=== PATIENT | male | born 1940 | race Caucasian/White ===

== ENCOUNTER → 2016-09-16 | Outpatient (CLI) | payer OTHER, BC ==
[2016-09-16 13:53] LABS: BASO % 0.3 %; BASO ABS # 0.02 K/uL (0-0.2); COMPLETE YES; EOS % 3.4 %; HEMATOCRIT 42.5 % (42-52); IG% 0.1 %; LYMPH % 28.4 %; LYMPH ABS # 2.01 K/uL (1.2-3.4); MEAN CELL VOLUME 88.9 fL (80-100); MEAN CORPUSCULAR HEMOGLOBIN 29.3 pg (25-34); MEAN CORPUSCULAR HGB CONC 32.9 g/dl (32-36); MEAN PLATELET VOLUME 9.9 fL (7.4-10.4); NEUT % 55.8 %; PLATELET COUNT 184 K/uL (130-400); RED BLOOD COUNT 4.78 M/uL (4.7-6.1); WHITE BLOOD COUNT 7.08 K/uL (4.8-10.8)
[2016-09-16 14:08] LABS: ALT/SGPT 32 U/L (12-78); AST/SGOT 26 U/L (15-37); BLOOD UREA NITROGEN 16 mg/dl (7-18); BUN/CREATININE RATIO 14.8 (10-20); CALCIUM 8.7 mg/dl (8.5-10.1); CARBON DIOXIDE 33 mmol/L (21-32); CHLORIDE 108 mmol/L (98-107); CHOLESTEROL 136 mg/dl (0-200); GLUCOSE 80 mg/dl (70-99); POTASSIUM 3.6 mmol/L (3.5-5.1); SODIUM 146 mmol/L (136-145)
[2016-09-16 14:14] LABS: URINE APPEARANCE CLEAR (CLEAR); URINE BILIRUBIN NEG (NEG); URINE COLOR DK YELLOW; URINE NITRITE NEG (NEG); UROBILINOGEN NEG (NEG)
[2016-09-16 14:18] LABS: ALB/GLOB RATIO 0.9 (0.9-2); ALKALINE PHOSPHATASE 90 U/L (45-117); CHOLESTEROL/HDL RATIO 2.4; HDL CHOLESTEROL 56 mg/dl; LDL CHOLESTEROL CALCULATED 56 mg/dl; PROSTATE SPECIFIC ANTIGEN < 0.010 ng/ml (0.000-4.000); TRIGLYCERIDES 119 mg/dl (0-150); VERY LOW DENSITY LIPOPROT CALC 24 mg/dl
[2016-09-16 14:19] LABS: MANUAL MICROSCOPIC REQUIRED? NO; REVIEW REQ? NO
== END | disposition home or self-care (01) ==
LOC: C.LABMFLN 08:01
PROVIDERS: ATTEND Family Medicine
DX: E78.5 Hyperlipidemia, unspecified (principal); C61 Malignant neoplasm of prostate; K21.9 Gastro-esophageal reflux disease without esophagitis; I10 Essential (primary) hypertension

== ENCOUNTER → 2016-11-04 | Outpatient (CLI) | payer OTHER, BC ==
[2016-11-04 14:05] LABS: BLOOD UREA NITROGEN 19 mg/dl (7-18); BUN/CREATININE RATIO 17.1 (10-20); CALCIUM 9.2 mg/dl (8.5-10.1); CARBON DIOXIDE 30 mmol/L (21-32); CHLORIDE 107 mmol/L (98-107); GLUCOSE 99 mg/dl (70-99); POTASSIUM 3.5 mmol/L (3.5-5.1); SODIUM 144 mmol/L (136-145)
== END | disposition home or self-care (01) ==
LOC: C.LABMFLN 07:37
PROVIDERS: ATTEND Physician Assistant
DX: Z00.00 Encounter for general adult medical examination without abnormal findings (principal); I10 Essential (primary) hypertension

== ENCOUNTER → 2017-01-09 | Outpatient (CLI) | payer OTHER, BC | END | disposition home or self-care (01) | LOC: C.PATHSPEC 13:48 | PROVIDERS: ATTEND Dermatology | DX: L57.9 Skin changes due to chronic exposure to nonionizing radiation, unspecified (principal) ==

== ENCOUNTER → 2017-03-04 | Outpatient (CLI) | payer OTHER, BC ==
--- NOTE | 2017-03-04 15:59 | DIAGNOSTIC IMAGING REPORT ---
LEFT HAND 3 VIEWS CLINICAL HISTORY: SICCA syndrome. FINDINGS: 3 views of left hand are obtained. No prior studies are available for comparison at the time of dictation. The skeletal structures are osteopenic. No fracture is seen. Mild osteoarthritic change is present at the radiocarpal articulation. There is mild osteoarthrosis at the first carpometacarpal and metacarpophalangeal joints, as well as involving the interphalangeal joints. No erosive change is identified. The overlying soft tissues are within normal limits. IMPRESSION: Osteopenia and arthritic change as above. No acute bony abnormality is seen. Electronically signed by: Glen Abad M.D. 03/04/2017 3:07 PM Dictated Date/Time: 03/04/2017 3:05 PM
--- NOTE | 2017-03-04 15:59 | DIAGNOSTIC IMAGING REPORT ---
TEMPORARY HISTORY: -old Unknown patient presents with sicca syndrome. COMPARISON: Left hand radiographs of same day TECHNIQUE: 3 views of the right hand FINDINGS: Bone mineralization is within normal limits. There is no acute fracture or dislocation. Mild metacarpophalangeal and interphalangeal degenerative changes are noted. No soft tissue calcifications are identified. No definite erosive changes. No acute fracture or dislocation. IMPRESSION: 1. No acute fracture or dislocation. 2. Mild degenerative changes about the metacarpophalangeal and interphalangeal joints. 3. No soft tissue calcifications. The above report was generated using voice recognition software. It may contain grammatical, syntax or spelling errors. Electronically signed by: Mark Anthony Goode M.D. 03/04/2017 3:31 PM Dictated Date/Time: 03/04/2017 3:13 PM
== END | disposition home or self-care (01) ==
LOC: C.RAD1850 14:53
PROVIDERS: ATTEND Internal Medicine Rheumatology
DX: M35.00 Sjogren syndrome, unspecified (principal); M85.842 Other specified disorders of bone density and structure, left hand

== ENCOUNTER → 2017-03-19 | Outpatient (CLI) | payer OTHER, BC ==
[2017-03-19 13:13] LABS: BASO % 0.4 %; BASO ABS # 0.03 K/uL (0-0.2); COMPLETE YES; EOS % 3.8 %; HEMATOCRIT 40.5 % (42-52); IG% 0.3 %; LYMPH % 35.9 %; LYMPH ABS # 2.55 K/uL (1.2-3.4); MEAN CELL VOLUME 89.4 fL (80-100); MEAN CORPUSCULAR HEMOGLOBIN 29.8 pg (25-34); MEAN CORPUSCULAR HGB CONC 33.3 g/dl (32-36); MEAN PLATELET VOLUME 9.8 fL (7.4-10.4); MONO % 10.8 %; NEUT % 48.8 %; PLATELET COUNT 158 K/uL (130-400); RED BLOOD COUNT 4.53 M/uL (4.7-6.1)
[2017-03-19 13:23] LABS: MANUAL MICROSCOPIC REQUIRED? NO; REVIEW REQ? NO; URINE APPEARANCE CLEAR (CLEAR); URINE BILIRUBIN NEG (NEG); URINE COLOR DK YELLOW; URINE EPITHELIAL CELL AUTO 0-5 /lpf (0-5); URINE NITRITE NEG (NEG); URINE SPECIFIC GRAVITY 1.024 (1.000-1.030); UROBILINOGEN NEG (NEG)
[2017-03-19 13:48] LABS: ALT/SGPT 31 U/L (12-78)
[2017-03-19 13:53] LABS: ALKALINE PHOSPHATASE 95 U/L (45-117); AST/SGOT 29 U/L (15-37); PROSTATE SPECIFIC ANTIGEN 0.013 ng/ml (0.000-4.000)
[2017-03-24 10:17] LABS: ANTI-CENTROMERE AB <1.0 NEG AI (<1.0 NEG); ANTI-SS-A >8.0 POS AI (<1.0 NEG); ANTI-SS-B >8.0 POS AI (<1.0 NEG); DNA ds CRITHIDIA NEGATIVE (NEGATIVE); Sm Antibody <1.0 NEG AI (<1.0 NEG)
[2017-03-24 14:04] LABS: ANA TITER > OR = 1:1280 TITER (<1:40)
== END | disposition home or self-care (01) ==
LOC: C.LABMFLN 09:09
PROVIDERS: ATTEND Internal Medicine Rheumatology
DX: R33.9 Retention of urine, unspecified (principal); M35.00 Sjogren syndrome, unspecified

== ENCOUNTER → 2017-04-14 | Outpatient (CLI) | payer OTHER, BC ==
[2017-04-14 14:01] LABS: BASO % 0.3 %; BASO ABS # 0.02 K/uL (0-0.2); COMPLETE YES; EOS % 3.4 %; HEMATOCRIT 40.8 % (42-52); IG% 0.1 %; LYMPH % 30.6 %; LYMPH ABS # 2.16 K/uL (1.2-3.4); MEAN CELL VOLUME 89.5 fL (80-100); MEAN CORPUSCULAR HEMOGLOBIN 29.6 pg (25-34); MEAN CORPUSCULAR HGB CONC 33.1 g/dl (32-36); MEAN PLATELET VOLUME 10.6 fL (7.4-10.4); MONO % 13.8 %; NEUT % 51.8 %; PLATELET COUNT 160 K/uL (130-400); RED BLOOD COUNT 4.56 M/uL (4.7-6.1); WHITE BLOOD COUNT 7.05 K/uL (4.8-10.8)
[2017-04-14 14:43] LABS: ALT/SGPT 31 U/L (12-78); AST/SGOT 23 U/L (15-37); BLOOD UREA NITROGEN 17 mg/dl (7-18); BUN/CREATININE RATIO 15.8 (10-20); CALCIUM 8.9 mg/dl (8.5-10.1); CARBON DIOXIDE 30 mmol/L (21-32); CHLORIDE 110 mmol/L (98-107); CREATININE 1.07 mg/dl (0.60-1.40); GLUCOSE 87 mg/dl (70-99); POTASSIUM 3.9 mmol/L (3.5-5.1); SODIUM 147 mmol/L (136-145)
[2017-04-14 14:46] LABS: ALB/GLOB RATIO 0.8 (0.9-2); ALKALINE PHOSPHATASE 95 U/L (45-117); CHOLESTEROL 114 mg/dl (0-200); CHOLESTEROL/HDL RATIO 2.2; HDL CHOLESTEROL 51 mg/dl; LDL CHOLESTEROL CALCULATED 31 mg/dl; TRIGLYCERIDES 162 mg/dl (0-150); VERY LOW DENSITY LIPOPROT CALC 32 mg/dl
[2017-04-14 18:54] LABS: URINE APPEARANCE CLEAR (CLEAR); URINE BILIRUBIN NEG (NEG); URINE COLOR DK YELLOW; URINE NITRITE NEG (NEG); URINE PH 5.5 (4.5-7.5); URINE SPECIFIC GRAVITY 1.027 (1.000-1.030); UROBILINOGEN NEG (NEG)
[2017-04-14 18:56] LABS: MANUAL MICROSCOPIC REQUIRED? NO; REVIEW REQ? NO
== END | disposition home or self-care (01) ==
LOC: C.LABMFLN 07:16
PROVIDERS: ATTEND Physician Assistant
DX: Z51.81 Encounter for therapeutic drug level monitoring (principal); Z79.52 Long term (current) use of systemic steroids; M35.00 Sjogren syndrome, unspecified; M54.17 Radiculopathy, lumbosacral region; E78.5 Hyperlipidemia, unspecified; K21.9 Gastro-esophageal reflux disease without esophagitis; I10 Essential (primary) hypertension

== ENCOUNTER → 2017-05-19 | Outpatient (CLI) | payer OTHER, BC ==
[2017-05-19 13:26] LABS: BLOOD UREA NITROGEN 12 mg/dl (7-18); BUN/CREATININE RATIO 11.1 (10-20); CALCIUM 9.3 mg/dl (8.5-10.1); CARBON DIOXIDE 31 mmol/L (21-32); CHLORIDE 105 mmol/L (98-107); CREATININE 1.12 mg/dl (0.60-1.40); GLUCOSE 92 mg/dl (70-99); POTASSIUM 3.7 mmol/L (3.5-5.1); SODIUM 143 mmol/L (136-145)
== END | disposition home or self-care (01) ==
LOC: C.LABMFLN 07:31
PROVIDERS: ATTEND Physician Assistant
DX: E87.0 Hyperosmolality and hypernatremia (principal)

== ENCOUNTER → 2017-09-22 | Outpatient (CLI) | payer OTHER, BC ==
[2017-09-22 12:52] LABS: BASO % 0.4 %; BASO ABS # 0.03 K/uL (0-0.2); EOS % 3.5 %; EOS ABS # 0.27 K/uL (0-0.5); HEMATOCRIT 41.7 % (42-52); HEMOGLOBIN 13.8 g/dL (14.0-18.0); IG# 0.01 K/uL (0.00-0.02); LYMPH % 33.6 %; LYMPH ABS # 2.57 K/uL (1.2-3.4); MEAN CELL VOLUME 89.3 fL (80-100); MEAN CORPUSCULAR HEMOGLOBIN 29.6 pg (25-34); MEAN CORPUSCULAR HGB CONC 33.1 g/dl (32-36); MEAN PLATELET VOLUME 10.7 fL (7.4-10.4); MONO % 12.3 %; MONO ABS # 0.94 K/uL (0.11-0.59); NEUT % 50.1 %; NEUT ABS # 3.82 K/uL (1.4-6.5); PLATELET COUNT 170 K/uL (130-400); RED CELL DISTRIBUTION WIDTH CV 14.2 % (11.5-14.5); RED CELL DISTRIBUTION WIDTH SD 46.2 fL (36.4-46.3); WHITE BLOOD COUNT 7.64 K/uL (4.8-10.8)
[2017-09-22 13:30] LABS: ALBUMIN 3.3 gm/dl (3.4-5.0); ALT/SGPT 35 U/L (12-78); AST/SGOT 30 U/L (15-37); BLOOD UREA NITROGEN 16 mg/dl (7-18); CALCIUM 8.7 mg/dl (8.5-10.1); CARBON DIOXIDE 31 mmol/L (21-32); CHOLESTEROL 125 mg/dl (0-200); CREATININE 1.15 mg/dl (0.60-1.40); GLUCOSE 93 mg/dl (70-99); POTASSIUM 3.4 mmol/L (3.5-5.1); SODIUM 143 mmol/L (136-145)
[2017-09-22 13:35] LABS: ALKALINE PHOSPHATASE 107 U/L (45-117); LDL CHOLESTEROL CALCULATED 52 mg/dl; TOTAL PROTEIN 7.5 gm/dl (6.4-8.2)
== END | disposition home or self-care (01) ==
LOC: C.LABMFLN 07:07
PROVIDERS: ATTEND Physician Assistant
DX: C61 Malignant neoplasm of prostate (principal); E78.5 Hyperlipidemia, unspecified; I10 Essential (primary) hypertension; E87.0 Hyperosmolality and hypernatremia

== ENCOUNTER → 2017-10-03 | Outpatient (CLI) | payer OTHER, BC | END | disposition home or self-care (01) | LOC: C.LABMFLN 08:33 | PROVIDERS: ATTEND Physician Assistant | DX: E87.6 Hypokalemia (principal) ==

== ENCOUNTER → 2018-02-10 | Outpatient (CLI) | payer OTHER, BC ==
[2018-02-10 14:11] LABS: ALBUMIN 3.1 gm/dl (3.4-5.0); BLOOD UREA NITROGEN 20 mg/dl (7-18); CALCIUM 8.4 mg/dl (8.5-10.1); CARBON DIOXIDE 27 mmol/L (21-32); CREATININE 1.31 mg/dl (0.60-1.40); GLUCOSE 180 mg/dl (70-99); PHOSPHORUS 2.3 mg/dl (2.5-4.9); POTASSIUM 3.7 mmol/L (3.5-5.1); SODIUM 141 mmol/L (136-145)
== END | disposition home or self-care (01) ==
LOC: C.LABMFLN 08:05
PROVIDERS: ATTEND Physician Assistant
DX: R94.6 Abnormal results of thyroid function studies (principal); I95.9 Hypotension, unspecified; R42 Dizziness and giddiness

== ENCOUNTER 2025-05-04 08:10 | Observation (INO) ==
--- NOTE | 2025-05-04 09:14 | History & Physical Bridge Note ---
Date of Service May 04, 2025 History & Physical Bridge Note I have examined the patient, reviewed the History & Physical and in the interval since the performance of the History & Physical I have noted the following changes of clinical significance: no changes noted
[2025-05-04 09:26] LABS: Hematocrit (blood only) 38.6 % (42.0-52.0); Hemoglobin 12.8 g/dl (14.0-18.0); Mean Corpuscular Hemoglobin 29.2 pg (25.0-34.0); Mean Corpuscular Volume 87.9 fL (80.0-100.0); Platelet Count 159 K/uL (130-400); RDW Standard Deviation 44.2 fL (36.4-46.3); Red Blood Count 4.39 M/uL (4.70-6.10); White Blood Count 7.99 K/ul (4.8-10.8)
--- NOTE | 2025-05-04 09:34 | Pre Anesthesia Assessment ---
Date of Service May 04, 2025 Pre Sedation Assessment Vital Signs Pulse Resp BP Pulse Ox O2 Del Method 05/04/25 08:48 Room Air 05/04/25 08:48 73 18 174/89 H 97 Room Air Cardiovascular + regular rate Respiratory normal respiratory effort, lungs clear to auscultation Pre-Sedation Airway Assessment Smoking Status: Never smoker Hx Sleep Apnea: No Short, Thick Neck: No Thyromental Distance: > or= 3.5 Finger Breadths Oral Cavity: + Dentures Mallampati Class: III ASA: ASA3 NPO Status Date of Last Intake of Fluids: 05/03/25 Time of Last Intake of Fluids: 17:00 Date of Last Intake of Solid Food: 05/03/25 Time of Last Intake of Solid Foods: 17:00 Procedure Planning Contraindications for Sedation: none Current Medications Reviewed: Yes Notes The planned sedation has been discussed with the patient. Informed Consent was obtained. I have identified the patient, determined the appropriateness of sedation and have assessed the patient immediately prior to the procedure. All medicine(s) and interventions are by my order.
[2025-05-04 09:43] LABS: Anion Gap 6.0 (3-11); Blood Urea Nitrogen 21.0 mg/dl (6-23); Calcium 9.4 mg/dl (8.6-10.3); Carbon Dioxide 29.0 mmol/L (21-32); Chloride 107.0 mmol/L (98-107); Creatinine Clr Calc Pharmacy 46.4 ml/min; Glucose 98.0 mg/dl (70-99(Fasting)); Potassium 4.1 mmol/L (3.5-5.1); Sodium 142.0 mmol/L (136-145)
[2025-05-04] MEDS: MIDAZOLAM HCL 1 MG/ML 2ML VIAL ONE ×2 (11:03→12:25)
[2025-05-04] MEDS: niCARdipine 2,000 MCG/20 ML SYR ONE (11:03)
[2025-05-04] MEDS: NITROGLYCERIN/D5W 100MCG/ML 20ML SYR ONE (11:03)
--- NOTE | 2025-05-04 11:25 | Cardiac Catheterization ---
[facility] Data: Director Motion Picture Cardiac Status Clinical evaluation leading to the procedure CAD Presenation: Stable angina Anginal Classification: CCS III Heart Failure: No Cardiogenic Shock within 24 Hours: No Cardiac Arrest within 24 Hours: No Imaging Studies Past 6 Months: Yes Stress Studies Past 6 Months: No Coronary Anatomy Dominant: Right Diagnostic Physicians Name: Anand Hinds MD Closure Device Percutaneous Entry Location: Femoral Recommendations: PCI without planned CABG Cardiac Cath Procedure Full Procedure Date May 04, 2025 Pre-Procedure Diagnosis Pre-Procedure Diagnosis: Angina AUC Score AUC Score: 7 Post-Procedure Diagnosis Post-Procedure Diagnosis: Severe CAD Procedure(s) Performed Procedure(s) Performed: Coronary Angiography, Left Heart Cath and Ultrasound Guided Vascular Access Cable Dispatcher Anand Hinds MD Utilization Management Manager(s) Marlon Estimated Blood Loss Estimated Blood Loss: < 20 ml Medication(s) Medication(s): Fentanyl, Lidocaine 1%, Nicardipine and Versed Summary of Findings Procedures: 1. Coronary angiography 2. Left heart catheterization 3. Ultrasound guidance for vascular access 4. Moderate sedation Indication: Mr. Cutler is a very pleasant 84-year-old gentleman with a history significant for CAD and LAD PCI (proximal and mid), prediabetes, hypertension, and dyslipidemia. He has been experiencing progressively worsening exertional angina/dyspnea, similar to previous angina. Medical therapy has been adjusted with no improvement and continued worsening symptoms. He wished undergo coronary angiography and PCI if able. Coronary angiography: 1. Left main: No significant CAD. 2. Left anterior descending: Calcifications noted within the proximal and mid LAD. Diffuse moderate CAD involving the proximal LAD. Proximal LAD stent difficult to discern. Early mid LAD approximately 70-80%. Late mid LAD stent patent. Large D1 without significant CAD. Small D2. 3. Circumflex: Early mid circumflex 20%. High OM1 with proximal 30 to 40%. Small OM 2. Distal AV groove circumflex is small in caliber. 4. Right coronary artery: RCA is large and dominant. Calcifications noted within the proximal and mid RCA. Mid RCA 40%. PDA and PL without significant CAD. Left heart catheterization: 1. Left ventriculography was not performed. 2. No aortic stenosis. Qklp-nb-whhx gradient across the aortic valve was 0. 3. LVEDP 12 mmHg. Ultrasound guidance for vascular access: 1. Right femoral artery was visualized under ultrasound. With ultrasound guidance, access needle was visualized entering the femoral artery, without known complication. Moderate sedation: 1. Sedation start time: 10:10 AM 2. Sedation end time: 11:14 AM Procedural details: 1. Left radial artery was accessed and sheath placed without complication. Guidewire was unable to be advanced beyond the mid upper extremity. Angiography was performed and the radial artery was very tortuous. Glidewire was attempted but unsuccessful to maneuver into the brachial artery. Decision was made to use the right femoral artery. No hematoma was noted. Impression: 1. Severe CAD involving early mid LAD. 2. Nonobstructive CAD involving circumflex and RCA. 3. Patent mid LAD stent. 4. Patent proximal LAD stent, however not well-visualized. The severe LAD lesion appears to be distal to proximal LAD stent. 5. No aortic stenosis. 6. Normal left-sided filling pressure. Plan: 1. Images were reviewed with Dr. Lang of interventional cardiology. 2. As medical therapy has not been able to improve his symptoms and his anginal symptoms continue to worsen, Dr. Lang plans on attempting PCI of the LAD. Hemodynamics Rest Ao:: 130/85 Final Ao: 146/65 LV: 143/3/12 Recommendations Recommendations: PCI without planned CABG Specimens Specimens: None Radiation Exposure (mGy) 897 mGy. Fluoro time 14.3 min. Contrast (mls) 40 ml Procedural Complication(s) None Disposition remains in paving and surfacing labourer for PCI attempt I attest to the content of the Intraoperative Record and any orders documented therein. Any exceptions are noted below. [facility] Card Cath Procedure Codes Cardiac Catheterization Procedure 1: Cardiovascular Cath Procedures: 86425 Coronaries and LHC (+/-LV) Therapeutic Services & Ancillary Procedure 1: Cardiovascular Tx and Anc Procedures: 22019 Ultrasonic Guidance Vascular Access Moderate Sedation Procedure 1: Sedation/Anesthesia: 96790 Mod Sedation by the same physician;Init15 Min Child Age 5 & Up Procedure 2: Sedation/Anesthesia: 73586 Mod Sedation by the same physician; Ea [id number] Minutes Procedure 3: Sedation/Anesthesia: 89808 Mod Sedation by the same physician; Ea [id number] Minutes Procedure 4: Sedation/Anesthesia: 23160 Mod Sedation by the same physician; Ea [id number] Minutes Procedure 5: Sedation/Anesthesia: 21483 Mod Sedation by the same physician; Ea [id number] Minutes PG Care Time/CCT Total # of Minutes Spent Total Time Spent with Patient: Total time spent is greater than 50% in coordination of care (as documented) at patient's floor/unit and/or counseling patient:
[2025-05-04] MEDS: HEPARIN (PORCINE) 1000 UNIT/ML 10 ML (CATH LAB USE ONLY) ONE ×2 (12:23→12:25)
[2025-05-04] MEDS: OPTIRAY 350 ONE (12:24)
[2025-05-04] MEDS: CLOPIDOGREL BISULFATE 300 MG TAB ONE (12:26)
[2025-05-04] MEDS ORDERED: ONDANSETRON INJ 2 MG/ML 2 ML VIAL IV PRN (12:38)
--- NOTE | 2025-05-04 12:38 | Post Anesthesia Assessment ---
Date of Service May 04, 2025 Post Sedation Assessment Vital Signs Pulse Resp BP Pulse Ox O2 Del Method 05/04/25 08:48 Room Air 05/04/25 08:48 73 18 174/89 H 97 Room Air Recovery Score Activity: Moves 4 extremities Respiration: Deep Breath/Cough Circulation: +/-20% PreAnes Value Consciousness: Fully Awake Oxygen Saturation: O2 needed for >90% Discharge Sedation Level of Care: Fast Track Phase II
[2025-05-04] MEDS ORDERED: NITROGLYCERIN SL 0.4 MG/TAB TAB SL PRN (12:40)
[2025-05-04] MEDS: PROTAMINE SULFATE 10 MG/ML 5 ML VIAL IV ONE (12:51)
[2025-05-04] MEDS: ATENOLOL 25 MG TABLET PO SCH (20:05)
[2025-05-04] MEDS: MELATONIN 3 MG TAB PO PRN (21:19)
--- NOTE | 2025-05-05 01:47 | Cardiac Catheterization ---
[facility] Data: Crayon Molding Machine Operator Cardiac Status Clinical evaluation leading to the procedure CAD Presenation: Stable angina Anginal Classification: CCS III Diagnostic Physicians Name: Ar Lang MD Closure Device Recommendations: PCI without planned CABG Cardiac Cath Procedure Full Procedure Date May 05, 2025 Pre-Procedure Diagnosis Pre-Procedure Diagnosis: Angina AUC Score AUC Score: 7 Post-Procedure Diagnosis Post-Procedure Diagnosis: Severe CAD and Successful PCI Procedure(s) Performed Procedure(s) Performed: Coronary Angiography, Drug Eluting Stent and IVUS Turf Farm Worker Ar Lang MD Coating And Baking Operator(s) Marlon Estimated Blood Loss Estimated Blood Loss: 30 Medication(s) Medication(s): Clopidogrel, Fentanyl, Heparin, Lidocaine 1%, Nicardipine, Nitroglycerin and Versed Summary of Findings Indication: Refractory angina Access: 6 Fr right DOWN FILLER Catheters: EBU 3.5 guide Findings: For full details of patient's coronary angiography please see cath report dictated by Dr. Hinds. Briefly, patient found to have severe earlymid LAD disease up to 80%. Decision to proceed with PCI. -- PCI -- Antithrombotic therapy: Heparin, clopidogrel Procedure: Left main cannulated with EBU 3.5 Pre-procedure flow MILKA 3 [place] blue wire placed into diagonal Camera Person 50 wire passed across lesion into distal LAD Proximal to mid LAD lesion predilated with 2.5 compliant balloon Lyman IVUS catheter placed in mid LAD. Pullback revealed patent latemid stent. Severe, calcified disease just after takeoff of first diagonal (MLA 2.8 mm), mild to moderate diffuse proximal disease. Minimal left main disease Proximal to mid LAD further dilated with intravascular lithotripsy (2.5 mm shockwave, 40 pulses). Dilated proximal to mid LAD stented with 2.75 x 28 mm Xience DUNIA overlapping proximal aspect of latemid stent Stent post-dilated with 3.0 noncompliant balloon IC vasodilators administered for spasm Repeat IVUS revealed revealed well apposed stent with questionable underexpansion at proximal edge. Repeat angiography revealed some haziness at proximal edge of stent and decision to place additional DUNIA 2.75 x 8 mm Xience placed to LAD ostium overlapping proximal aspect of first stent Stent postdilated with stent balloon Post procedure MILKA 3 flow, stents well expanded with minimal residual stenosis and no apparent cardiac complications. Arterial Closure: Mynx, manual hold Summary: 1. Successful PCI of ostial to mid LAD with intravascular lithotripsy and 2 overlapping drug-eluting stents (2.75 x 8 mm, 2.75 x 28 mm Xience; postdilated with 3.0 NC) overlapping proximal edge of old earlymid stent. Recommendations: To PCU for continued monitoring Loaded with clopidogrel 600 mg in Crayon Molding Machine Operator Continue dual-antiplatelet therapy for at least 6 months, consider extended P2Y12 Continue statin, and ASCVD risk factor modification Hemodynamics Rest Ao:: 158/61/87 Final Ao: 150/6624 LV: -- Recommendations Recommendations: PCI without planned CABG Specimens Specimens: None Radiation Exposure (mGy) 2829 Contrast (mls) 130 Anesthesia Moderate 0354-0480 Procedural Complication(s) None Disposition PCU I attest to the content of the Intraoperative Record and any orders documented therein. Any exceptions are noted below. [facility] Card Cath Procedure Codes Therapeutic Services & Ancillary Procedure 1: Cardiovascular Tx and Anc Procedures: 03250 IV Ultrasound (Coronary or Graft) Moderate Sedation Procedure 1: Sedation/Anesthesia: 76879 Mod Sedation by the same physician; Ea [id number] Minutes Angioplasty Procedure 1: Cardiovascular Angioplasty Procedures: 16790 Perq Trluml Coronry Lithotrp Stenting Procedure 1: Cardiovascular Stent Procedures: 51018 Perc transcatheter placement of i ntracoronary stent(s), with ang PG Care Time/CCT Total # of Minutes Spent Total Time Spent with Patient: Total time spent is greater than 50% in coordination of care (as documented) at patient's floor/unit and/or counseling patient:
[2025-05-05] MEDS: ACETAMINOPHEN 325 MG TAB PO PRN (03:24)
[2025-05-05 08:07] VITALS: RESP 19; O2SAT 95
[2025-05-05] MEDS: ASPIRIN 81 MG ECTAB PO SCH (08:16)
[2025-05-05] MEDS: ATORVASTATIN 40 MG TAB PO SCH (08:17)
[2025-05-05] MEDS: TAMSULOSIN HCL 0.4 MG CAP PO SCH (08:17)
[2025-05-05] MEDS: PREGABALIN 25 MG CAP PO SCH (08:17)
[2025-05-05] MEDS: CLOPIDOGREL BISULFATE 75 MG TAB PO SCH (08:17)
--- NOTE | 2025-05-05 10:06 | Electrocardiogram Report ---
Test Reason : Blood Pressure : */* mmHG Vent. Rate : 58 BPM Atrial Rate : 58 BPM P-R Int : 194 ms QRS Dur : 114 ms QT Int : 460 ms P-R-T Axes : 66 -10 70 degrees QTcB Int : 451 ms Sinus bradycardia Minimal voltage criteria for LVH, may be normal variant Septal infarct (cited on or before 23-Mar-2025) Abnormal ECG When compared with ECG of 23-Mar-2025 13:48, No significant change was found Confirmed by Damon Norton ([id number]) on 05/05/2025 10:06:41 AM Referred By: Rayne Ennis Confirmed By: Damon Norton
[2025-05-05 12:07] VITALS: BP 160/68; PULSE 70; TEMP 97.7
--- NOTE | 2025-05-05 23:06 | Discharge Summary ---
Date of Service May 05, 2025 Admission HPI Per Admitting Provider Mr. Cutler is a very pleasant 84-year-old male with a history of CAD post prior stents to proximal, mid LAD who was referred for cardiac catheterization with several months of progressive exertional dyspnea/chest tightness and lightheadedness. Symptoms persisted despite escalating antianginal therapy. Discharge Data Procedures Performed Operation Date: 05/04/25 09:30 Actual Procedures p Cineradiography w/Routine Exam - Anand Hinds MD p Cath, Left with Cors and Vent - Anand Hinds MD p Drug Eluting Stent SGl Vessel - Ar Lang MD p IVUS Coronary Single Vessel - Ar Lang MD Hospital Course (1) CAD (coronary artery disease): Patient underwent coronary angiography with Dr. Hinds via left radial artery and right DETECTIVE LIEUTENANT. Findings: 1. Severe CAD involving early mid LAD. 2. Nonobstructive CAD involving circumflex and RCA. 3. Patent mid LAD stent. 4. Patent proximal LAD stent, however not well-visualized. The severe LAD lesion appears to be distal to proximal LAD stent. 5. No aortic stenosis. 6. Normal left-sided filling pressure. Decision to proceed with PCI and underwent successful PCI of ostial to mid LAD with intravascular lithotripsy and 2 overlapping drug-eluting stents (2.75 x 8 mm, 2.75 x 28 mm Xience; postdilated with 3.0 NC) overlapping proximal edge of old earlymid stent. Post procedure he was admitted to telemetry for observation. He remained chest pain-free throughout his hospital course. Stable on telemetry without significant arrhythmia. On hospital day 2 he was feeling well and reported improved breathing with walking to the bathroom. He had no apparent right DETECTIVE LIEUTENANT or left radial artery access site complications. He was discharged to home on DAPT with aspirin, clopidogrel. Follow-up with Dr. Hinds or Coty Ennis in 2 weeks. Discharge Instructions Home Medications aspirin 81 mg tablet,delayed release (Aspir-) 81 mg PO DAILY #90 tabs 12/11/18 [Rx Confirmed 05/04/25] cholecalciferol (vitamin D3) 10 mcg (400 unit) tablet 400 unit PO DAILY #90 tabs 12/11/18 [Rx Confirmed 05/04/25] kqztrpzz-zes-dqdgh acid 0.4 mg-lycopene 300 mcg-lutein 250 mcg tablet (Centrum Silver) 1 tab PO DAILY #90 tabs 12/11/18 [Rx Confirmed 05/04/25] ipratropium 0.5 mg-albuterol 3 mg (2.5 mg base)/3 mL nebulization soln 3 ml inhalation QID PRN Chest Pain 04/01/23 [History Confirmed 05/04/25] cyanocobalamin (vitamin B-12) 1,000 mcg tablet 1,000 mcg PO DAILY #90 tabs 08/18/23 [Rx Confirmed 05/04/25] mupirocin 2 % topical ointment 1 applic topical BID #15 grams 12/25/23 [Rx Confirmed 05/04/25] nitroglycerin 0.4 mg sublingual tablet (Nitrostat) 0.4 mg sublingual DIRECTED PRN Chest Pain #25 tabs 01/26/24 [Rx Confirmed 05/04/25] omeprazole 20 mg capsule,delayed release 20 mg PO DAILY #90 caps 06/21/24 [Rx Confirmed 05/04/25] amlodipine 2.5 mg tablet 2.5 mg PO DAILY #90 tabs 08/17/24 [Rx Confirmed 05/04/25] atorvastatin 40 mg tablet 40 mg PO DAILY #90 tabs 09/03/24 [Rx Confirmed 1 07/04/24] tamsulosin 0.4 mg capsule (Flomax) 0.4 mg PO DAILY #90 caps 09/06/24 [Rx Confirmed 05/04/25] pregabalin 25 mg capsule 25 mg PO DAILY #30 caps 12/09/24 [Rx Confirmed 05/04/25] atenolol 25 mg tablet 25 mg PO BID #180 tabs 01/07/25 [Rx Confirmed 05/04/25] prednisone 5 mg tablet 5 mg PO DAILY #90 tabs 03/09/25 [Rx Confirmed 05/04/25] isosorbide mononitrate 30 mg tablet,extended release 24 hr 30 mg PO DAILY #90 tabs 04/26/25 [Rx Confirmed 05/04/25] ranolazine 500 mg tablet,extended release,12 hr 500 mg PO BID 05/04/25 [History] clopidogrel 75 mg tablet 75 mg PO QAM #30 tabs 05/05/25 [Rx] Coding Level of Care Code 26589 IN/OBS DISCH 30 MIN/LESS Diagnoses CAD (coronary artery disease) I25.10
--- NOTE | 2025-05-10 09:47 | Electrocardiogram Report ---
Test Reason : Blood Pressure : */* mmHG Vent. Rate : 78 BPM Atrial Rate : 78 BPM P-R Int : 194 ms QRS Dur : 112 ms QT Int : 390 ms P-R-T Axes : 78 -22 81 degrees QTcB Int : 444 ms Normal sinus rhythm Minimal voltage criteria for LVH, may be normal variant ( Julio product ) Septal infarct (cited on or before 23-Mar-2025) Abnormal ECG When compared with ECG of 04-May-2025 13:38, No significant change was found Confirmed by Jonny Roman ([id number]) on 05/10/2025 9:46:53 AM Referred By: Rayne Ennis Confirmed By: Jonny Roman
== END 2025-05-05 13:35 | disposition home or self-care (01) ==
LOC: CC 08:10 → 4W 08:10